=== PATIENT | female | born 1970 | race Caucasian/White ===

== ENCOUNTER 2019-04-16 05:59 | Day surgery (SDC) | payer BC ==
--- NOTE | 2019-04-05 20:30 | HP ---
CC: Dr. Kassandra Barragan * ADMITTING HISTORY AND PHYSICAL: DATE OF ADMISSION: 04/16/19 ADMITTING DIAGNOSES: 1. History of bladder cancer. 2. bladder lesion. 3. Hematuria. PLANNED PROCEDURE: Transurethral resection of bladder lesion. SURGEON: Parminder Hui MD HISTORY OF PRESENT ILLNESS: Marge Heard is a 48-year-old lady who initially had an evaluation and management in [place] for a muscle invasive bladder tumor. She had been managed with a course of neoadjuvant chemotherapy and then in August 2018, she underwent partial cystectomy. She had undergone cystoscopy and excision biopsy of bladder lesion. These were located at close to residual suture material at the site of the partial cystectomy and pathology had revealed areas of inflammation with no malignancy. She subsequently had a followup cystoscopy in my office a few weeks ago, and at this time I felt a new finding of 2 small areas of slightly raised hyperemic mucosa, one lateral to the left orifice, one lateral to the right orifice in the urinary bladder. Urine cytology was obtained which was suspicious for the urothelial carcinoma and she is now being brought in for transurethral resection of this bladder lesion. It should also be noted that she had a recent CT which did not reveal any involvement of kidneys or ureters. PAST MEDICAL HISTORY: Significant for bladder cancer as outlined above and a history of deep venous thrombosis and pulmonary embolism in 2018. PAST SURGICAL HISTORY: Significant for bladder biopsies in December of 2018, transurethral resection of bladder tumor with subsequent partial cystectomy in April and August of 2018 respectively, and bilateral breast surgery. MEDICATIONS ON ADMISSION: None. ALLERGIES: No known drug allergies. FAMILY HISTORY: Noncontributory. SMOKING HISTORY: She is a nonsmoker. REVIEW OF SYSTEMS: She is otherwise in excellent health. There is no history of diabetes mellitus or any other major systemic illness. She denies any chest pain or shortness of breath. PHYSICAL EXAMINATION GENERAL: Reveals a pleasant, healthy-appearing middle-aged lady. VITAL SIGNS: Blood pressure is 120/70, pulse 90 per minute and regular, oxygen saturation is 99% on room air, temperature 96.2. LUNGS: Clear bilaterally. CARDIOVASCULAR: Regular rate and rhythm. S1, S2. ABDOMEN: Soft without masses. IMPRESSION: A 48-year-old nonsmoker with what appears to be a recurrent bladder cancer. PLANNED PROCEDURE: Transurethral resection of bladder lesion. [id number]/[facility] #: [id number] VISHNU
[~2019-04-16 05:59] MED LIST: Buffered Lidocaine 1% SYRIN* 1 ML/SYRINGE INTRADERM ONE
[2019-04-16] MEDS ORDERED: Dexamethasone IV* 4 MG/ML 1 ML (4 MG) IV SLOW PU ONE (06:00)
[2019-04-16] MEDS ORDERED: Famotidine IV* 10 MG/ML 2 ML (20 mg) IV ONE (06:00)
[2019-04-16] MEDS ORDERED: Lactated Ringers 1000 ML Bag* 1,000 ML IV SCH (06:00)
[2019-04-16] MEDS ORDERED: cefTRIAXone(*) 1 GM ADVAN/BAG ONE (06:12)
[2019-04-16] MEDS ORDERED: Dexamethasone IV* 4 MG/ML 1 ML (4 MG) ONE (06:12)
[2019-04-16] MEDS ORDERED: Famotidine IV* 10 MG/ML 2 ML (20 mg) ONE (06:12)
[2019-04-16] MEDS ORDERED: fentaNYL* 50 MCG/ML 2 ML VIAL (100 MCG VIAL) ONE ×2 (07:05→08:07)
[2019-04-16] MEDS ORDERED: Midazolam* 1 MG/ML 5 ML VIAL (5 MG) ONE (07:06)
[2019-04-16] MEDS ORDERED: Naloxone* 0.4 MG/ML 1 ML VIAL IV PRN (07:16)
[2019-04-16] MEDS ORDERED: oxyCODONE/Acetamin 5/325 MG* TAB PO PRN (07:16)
[2019-04-16] MEDS ORDERED: fentaNYL* 50 MCG/ML 2 ML VIAL (100 MCG VIAL) IV PRN (07:16)
[2019-04-16] MEDS ORDERED: HYDROcodone/ACETAMIN 5-325 MG* 1 TAB PO PRN (07:16)
[2019-04-16] MEDS ORDERED: DiMENhydriNATE IV* 50 MG/ML VIAL IV PUSH PRN (07:16)
[2019-04-16] MEDS ORDERED: Propofol* 10 MG/ML 20 ML BTL ONE (07:34)
[2019-04-16] MEDS ORDERED: Lidocaine 2% PF * 5 ML VIAL ONE (07:34)
[2019-04-16] MEDS ORDERED: Phenylephrine 40 MCG/ML SYRINGE ONE (07:48)
[2019-04-16] MEDS ORDERED: Ondansetron INJ* 2 MG/ML VIAL ONE (07:53)
[2019-04-16] MEDS ORDERED: Furosemide IV* 10 MG/ML 2 ML VIAL (20 MG) ONE (07:59)
[2019-04-16] MEDS ORDERED: HYDROcodone/ACETAMIN 5-325 MG* 1 TAB ONE (08:49)
--- NOTE | 2019-04-16 09:51 | OP ---
CC: Dr. Kassandra Barragan * DATE OF OPERATION: 04/16/19 - [facility] DATE OF : 66 SURGEON: Parminder Hui MD. ANESTHESIOLOGIST: Dr. Otto ANESTHESIA: General. PRE-OP DIAGNOSES: 1. Bladder lesions. 2. History of bladder cancer. POST-OP DIAGNOSES: 1. Bladder lesions. 2. History of bladder cancer. OPERATIVE PROCEDURE: Cystoscopy, transurethral resection and biopsies of bladder lesions (aggregates 3 cm to 4 cm). COMPLICATIONS: None. BLOOD LOSS: Less than 25 cc. INDICATIONS: Marge Heard is a 48-year-old lady with a history of invasive bladder cancer, which has been previously managed with a partial cystectomy. She was recently in the office cystoscopy was noted to have the above-mentioned findings with a positive urine cytology. A CT scan done earlier this month had revealed no evidence of involvement of the kidneys or ureters. OPERATIVE FINDINGS: 1. Area of raised irregular mucosa, floor of bladder, right and left side. 2. Area of hyperemic irregular mucosa, posterior bladder wall. POSTOPERATIVE CONDITION: Stable. DESCRIPTION OF PROCEDURE: After induction of general anesthesia, the patient was placed in dorsal lithotomy position, sequential compression devices were in place and functioning. Initial evaluation revealed normally located right and left ureteral orifice. The patient had scar tissue near the dome of the bladder at the site of previous partial cystectomy. There was an area of hyperemic irregular mucosa in the posterior bladder wall and then a second area involving the floor of the bladder, both on the right and left sides where the mucosa was raised and irregular in appearance. There was no evidence of any typical papillary bladder lesions noted. Using a biopsy forceps, wholesale representative biopsies were obtained separately from the 2 abnormal areas and sent for histopathology. Next, the resectoscope was introduced and all of the abnormal-appearing areas were carefully resected and fulgurated. At the end of the procedure, hemostasis appeared satisfactory, and there was no evidence of bladder perforation. A 20-[place] Choi was placed for temporary bladder drainage. The patient tolerated the procedure satisfactorily and was transferred back to the recovery area in stable condition. [id number]/[facility] #: [id number] MTDD
[2019-04-16 10:07] VITALS: BP 137/92
== END 2019-04-16 10:44 | disposition home or self-care (01) ==
LOC: OR 05:59
PROVIDERS: ATTEND Urology
DX: C67.8 Malignant neoplasm of overlapping sites of bladder (principal); Z85.51 Personal history of malignant neoplasm of bladder; R31.9 Hematuria, unspecified; Z86.718 Personal history of other venous thrombosis and embolism; Z86.711 Personal history of pulmonary embolism
CPT/HCPCS: 88305; J0696; J1100; J1940; J2250; J2405; J2704; J3010